=== PATIENT | male | born 1975 | race African-American/Black ===

== ENCOUNTER 2020-09-27 15:55 | Emergency (ER) | payer SELFPAY ==
[2020-09-27 16:18] VITALS: BP 140/81; PULSE 78; TEMP 98; BMI 31.0
== END 2020-09-27 17:28 | disposition home or self-care (01) ==
LOC: JERFT 15:55 → JER 15:55 → JERFT 17:28
DX: S93.602A Unspecified sprain of left foot, initial encounter (principal); Z20.2 Contact with and (suspected) exposure to infections with a predominantly sexual mode of transmission
CPT/HCPCS: 36415; 73610-TC-LT-FY; 73630-TC-LT; 87491; 87591; 99283-25

== ENCOUNTER 2020-12-25 12:48 | Emergency (ER) | payer OTHER ==
[2020-12-25 13:44] VITALS: BP 148/90; PULSE 78; TEMP 97.9; BMI 31.9
== END 2020-12-25 14:53 | disposition home or self-care (01) ==
LOC: JER 12:48 → JERFT 12:48
DX: M79.10 Myalgia, unspecified site (principal)
CPT/HCPCS: 71045-TC-FY; 71111-TC-FY; 99284-25

== ENCOUNTER 2021-03-14 14:07 | Emergency (ER) | payer OTHER ==
[2021-03-14 14:23] VITALS: BP 140/85; PULSE 87; TEMP 98.5; BMI 31.6
[2021-03-15 14:07] LABS: SARS-CoV-2 NAA Not Detected (Not Detected)
== END 2021-03-14 15:33 | disposition home or self-care (01) ==
LOC: JER 14:07
DX: J06.9 Acute upper respiratory infection, unspecified (principal)
CPT/HCPCS: 36415; 87070; 87491; 87591; 87651; 87804; 87807; 99283-25; C9803-CS; U0003; U0005

== ENCOUNTER 2022-05-11 16:04 | Emergency (ER) | payer OTHER ==
[2022-05-11 16:27] VITALS: BP 135/89; PULSE 86; RESP 18; TEMP 98.2; BMI 32.5
== END 2022-05-11 18:13 | disposition home or self-care (01) ==
LOC: JERFT 16:04 → JER 16:04 → JERFT 18:13
DX: K40.90 Unilateral inguinal hernia, without obstruction or gangrene, not specified as recurrent (principal)
CPT/HCPCS: 36415; 87491; 87591; 99283-25